=== PATIENT | female | born 1975 | race Caucasian/White ===

== ENCOUNTER 2017-12-10 18:08 | Emergency (ER) | payer OTHER ==
[~2017-12-10] VITALS: Ht 167.6 cm; Wt 68.9 kg
[2017-12-10 18:21] VITALS: BP 127/87
--- NOTE | 2017-12-10 19:06 | PHYS DOC ---
Past History Past Medical History: Anxiety Alcohol Use: None Drug Use: None Adult General Chief Complaint Chief Complaint: CHEST WALL PAIN HPI HPI 42-year-old female presents with chest pain that started 4 hours ago. The pain came on after her workout at the gym when she got home. The pain was a tightness around her bra line that radiated into her shoulder blades. The intensity only lasted for about a minute, but she continues to have, dull ache in this region. She also states having intermittent jaw pain for the last couple of weeks that seems to come and go with no pattern. She has noticed it more with her daily workouts. She had some shortness of breath with today's episode but denies diaphoresis. She admits to a history of PTSD and anxiety. She knows that her anxiety about this feeling is making it worse. She took a muscle relaxer for the jaw tightness and a Xanax prior to arrival. They did help some, she is still worried. She denies fever or chills. She has no previous history of coronary artery disease or heart attack. Review of Systems Review of Systems Constitutional: Denies fever or chills [] Eyes: Denies change in visual acuity, redness, or eye pain [] HENT: Denies nasal congestion or sore throat pain [] Respiratory: Denies cough or shortness of breath [] Cardiovascular: No additional information not addressed in HPI [] GI: Denies abdominal pain, nausea, vomiting, bloody stools or diarrhea [] : Denies dysuria or hematuria [] Musculoskeletal: Denies back pain or joint pain [] Integument: Denies rash or skin lesions [] Neurologic: Mild right sided headache. No focal weakness or sensory changes [] Endocrine: Denies polyuria or polydipsia [] All other systems were reviewed and found to be within normal limits, except as documented in this note. Allergies Allergies Allergies Coded Allergies Type Severity Reaction Last Updated Verified No Known Drug Allergies 12/10/17 No Physical Exam Physical Exam Constitutional: Well developed, well nourished, no acute distress, non-toxic appearance. [] HENT: Normocephalic, atraumatic, bilateral external ears normal, oropharynx moist, no oral exudates, nose normal. [] Eyes: PERRLA, EOMI, conjunctiva normal, no discharge. [] Neck: Normal range of motion, no tenderness, supple, no stridor. [] Cardiovascular:Heart rate regular rhythm, no murmur [] Lungs & Thorax: Bilateral breath sounds clear to auscultation [] Abdomen: Bowel sounds normal, soft, no tenderness, no masses, no pulsatile masses. [] Skin: Warm, dry, no erythema, no rash. [] Back: No tenderness, no CVA tenderness. [] Extremities: No tenderness, no cyanosis, no clubbing, ROM intact, no edema. [] Neurologic: Alert and oriented X 3, normal motor function, normal sensory function, no focal deficits noted. [] Psychologic: Affect normal, judgement normal, mood normal. [] Current Patient Data Vital Signs Vital Signs Date Time Temp Pulse Resp B/P (MAP) Pulse Ox O2 Delivery O2 Flow Rate FiO2 12/10/17 18:21 98.2 60 16 98 Room Air EKG EKG Sinus rhythm, no rate 54, normal axis, no ST elevations or depressions.[] Radiology/Procedures Radiology/Procedures [] Impressions: My interpretation, chest x-rays no acute findings. Course & Med Decision Making Course & Med Decision Making Pertinent Labs and Imaging studies reviewed. (See chart for details) Chest x-ray is unremarkable. Her EKG is unremarkable. Her labs are unremarkable. Her troponin is negative. The patient's pain does not appear to be cardiac. It has improved rapidly. I had a long conversation with the patient and she was reassured by her results. She is an avid athlete, working out every day. She's had no exercise intolerance or difficulty. Her constellation of symptoms do not appear to be cardiac. The patient would prefer to go home versus chest pain rule out admission. If her symptoms worsen she will return to emergency room. She is stable for discharge at this time. [] Dragon Disclaimer Dragon Disclaimer This electronic medical record was generated, in whole or in part, using a voice recognition dictation system. JULITA MONTEMAYOR DO Dec 10, 2017 19:06
[2017-12-10 19:23] LABS: BASO % 1 % (0-3); EOS # 0.1 x10^3/uL (0.0-0.7); EOS % 2 % (0-3); HEMATOCRIT 39.3 % (36.0-47.0); HEMOGLOBIN 13.3 g/dL (12.0-15.5); LYMPH # 2.3 x10^3/uL (1.0-4.8); LYMPH % 31 % (24-48); MEAN CORPUSCULAR HEMOGLOBIN 32 pg (25-35); MEAN CORPUSCULAR HGB CONC 34 g/dL (31-37); MEAN CORPUSCULAR VOLUME 94 fL (79-100); MONO # 0.5 x10^3/uL (0.0-1.1); MONO % 7 % (0-9); NEUT # 4.5 x10^3uL (1.8-7.7); NEUT % 60 % (31-73); PLATELET COUNT 273 x10^3/uL (140-400); WHITE BLOOD COUNT 7.5 x10^3/uL (4.0-11.0)
[2017-12-10 19:33] LABS: ALBUMIN 3.8 g/dL (3.4-5.0); ALBUMIN/GLOBULIN RATIO 1.3 (1.0-1.7); CALCIUM 8.9 mg/dL (8.5-10.1); CREATININE 0.9 mg/dL (0.6-1.0); GFR 68.7; TOTAL BILIRUBIN 0.4 mg/dL (0.2-1.0); TOTAL PROTEIN 6.7 g/dL (6.4-8.2)
--- NOTE | 2017-12-10 22:40 | RAD ---
CHEST PA LATERAL dated 12/10/2017 6:35 PM. Comparison: None. Clinical Indication: Chest pain, no injury or surgery to chest. Findings: PA and lateral views of the chest were obtained. Heart and mediastinal contours within normal limits. Lungs are clear without focal consolidation. Vascular interstitium within normal limits. No pleural effusion or pneumothorax. Impression: No acute radiographic abnormality. Electronically signed by: Finn Reyes MD (12/10/2017 10:37 PM) [id number]
--- NOTE | 2017-12-11 06:34 | EKG ---
[address] [address] Test Date: 2017-12-10 Test Time: 19:11:22 Pat Name: SHELBIE STOREY Department: Room: Gender: F Ocularist: : 1975 Requested By: JULITA MONTEMAYOR Order Number: [id number] Reading MD: Measurements Intervals [place] Rate: 54 P: 38 TX: 146 QRS: 17 QRSD: 88 T: 21 QT: 426 QTc: 410 Interpretive Statements SINUS RHYTHM NO SPECIFIC ECG ABNORMALITIES RI6.01 Unconfirmed report No previous ECG available for comparison
== END 2017-12-10 21:14 | disposition home or self-care (01) ==
LOC: ER 18:08
DX: R07.89 Other chest pain (principal); R68.84 Jaw pain; R51 Headache; F41.9 Anxiety disorder, unspecified
CPT/HCPCS: 36415; 71046; 80053; 84484; 85025; 93005; 99285-25

== ENCOUNTER 2019-10-28 02:10 | Emergency (ER) | payer OTHER ==
[2017-12-10 20:29] VITALS: BP 153/65
== END 2019-10-28 02:14 | disposition left against medical advice (07) ==
LOC: ER 02:10
DX: Z20.818 Contact with and (suspected) exposure to other bacterial communicable diseases (principal); Z53.21 Procedure and treatment not carried out due to patient leaving prior to being seen by health care provider

== ENCOUNTER 2020-11-21 15:31 | Emergency (ER) | payer OTHER ==
[~2020-11-21] VITALS: Ht 167.6 cm; Wt 68.3 kg
[2020-11-21] MEDS ORDERED: LIDO:MAALOX 1:1 20 ML SINGLE DOSE. PO ONE (16:00)
--- NOTE | 2020-11-21 16:08 | PHYS DOC ---
Past History Past Medical History: Anxiety Additional Past Medical Histor: PTSD Past Surgical History: Angioplasty, Other Additional Past Surgical Histo: Thyriod, GI, bladder Alcohol Use: None Drug Use: None General Adult EDM: Chief Complaint: ABDOMINAL PAIN HPI: HPI: Patient is a 45-year-old female being seen in the ER today for epigastric pain that radiates up into her medial chest and to her back that started 3 weeks ago. Patient reports that she just thought this was GERD but over the last 2 days it had worsened. She has had a thyroidectomy and was told that during the surgery something of her that affected her esophagus and therefore she has acid reflux and some dysphagia. Patient rates pain 3 out of 10, it is constant, she describes it as a burning/pressure. It is worse with swallowing and burping, she reports that she often wakes up with a burning sensation. Patient denies cough, fevers, acid reflux, abdominal pain, nausea, vomiting, diarrhea, shortness of breath, urinary complaints, abdominal distention. Review of Systems: Review of Systems: 14 body systems of the review of systems have been reviewed. See HPI for pertinent positive and negative responses, otherwise all other systems are negative, nonpertinent or noncontributory Allergies: Allergies: Allergies Coded Allergies Type Severity Reaction Last Updated Verified No Known Drug Allergies 12/10/17 No Physical Exam: PE: Constitutional: Well developed, well nourished, no acute distress, non-toxic appearance. [] HENT: Normocephalic, atraumatic, bilateral external ears normal, oropharynx moist, no oral exudates, nose normal. [] Eyes: PERRL, conjunctiva normal, no discharge. [] Neck: Normal range of motion, no stridor Cardiovascular:Heart rate regular rhythm, no murmur, no pain with palpation of chest wall [] Lungs & Thorax: Bilateral breath sounds clear to auscultation [] Abdomen: Bowel sounds normal, soft, no tenderness, no masses, no pulsatile masses, patient reports "pressure" pain with palpation of epigastric region of abdomen. [] Skin: Warm, dry, no erythema, no rash. [] Back: Normal range of motion Extremities: No tenderness, no cyanosis, no clubbing, ROM intact, no edema. [] Neurologic: Alert and oriented X 3, normal motor function, normal sensory function, no focal deficits noted. [] Psychologic: Affect normal, judgement normal, mood normal. [] Current Patient Data: Labs: Laboratory Tests Test 11/21/20 15:51 11/21/20 16:28 Urine Collection Type Unknown Urine Color Yellow Urine Clarity Clear Urine pH 6.0 Urine Specific [place] 1.025 Urine Protein Neg Urine Glucose (UA) Neg mg/dL Urine Ketones (Stick) 15 mg/dL Urine Blood Trace Urine Nitrite Neg Urine Bilirubin Neg Urine Urobilinogen Dipstick 0.2 mg/dL Urine Leukocyte Esterase Neg Urine RBC 3-5 /HPF Urine WBC Occ /HPF Urine Squamous Epithelial Cells Few /LPF Urine Bacteria Few /HPF White Blood Count 8.6 x10^3/uL Red Blood Count 4.09 x10^6/uL Hemoglobin 13.5 g/dL Hematocrit 39.4 % Mean Corpuscular Volume 96 fL Mean Corpuscular Hemoglobin 33 pg Mean Corpuscular Hemoglobin Concent 34 g/dL Red Cell Distribution Width 12.9 % Platelet Count 260 x10^3/uL Neutrophils (%) (Auto) 69 % Lymphocytes (%) (Auto) 21 % Monocytes (%) (Auto) 8 % Eosinophils (%) (Auto) 1 % Basophils (%) (Auto) 1 % Neutrophils # (Auto) 5.9 x10^3uL Lymphocytes # (Auto) 1.8 x10^3/uL Monocytes # (Auto) 0.7 x10^3/uL Eosinophils # (Auto) 0.1 x10^3/uL Basophils # (Auto) 0.0 x10^3/uL Sodium Level 140 mmol/L Potassium Level 4.0 mmol/L Chloride Level 106 mmol/L Carbon Dioxide Level 27 mmol/L Anion Gap 7 Blood Urea Nitrogen 23 mg/dL Creatinine 0.9 mg/dL Estimated GFR (Cockcroft-Gault) 67.7 BUN/Creatinine Ratio 26 Glucose Level 88 mg/dL Calcium Level 8.4 mg/dL Total Bilirubin 0.4 mg/dL Aspartate Amino Transf (AST/SGOT) 19 U/L Alanine Aminotransferase (ALT/SGPT) 27 U/L Alkaline Phosphatase 82 U/L Troponin I Quantitative < 0.017 ng/mL Total Protein 6.7 g/dL Albumin 4.0 g/dL Albumin/Globulin Ratio 1.5 Lipase 120 U/L Current Medications Medications (Trade) Dose Ordered Sig/Deborah Route PRN Reason Start Time Stop Time Status Last Admin Dose Admin Multi-Ingredient Mouthwash/Gargle (Gi Cocktail) 20 ml 1X ONCE PO 11/21/20 16:00 11/21/20 16:40 DC 11/21/20 16:00 Vital Signs: Vital Signs Date Time Temp Pulse Resp B/P (MAP) Pulse Ox O2 Delivery O2 Flow Rate FiO2 11/21/20 15:45 98.2 64 16 158/82 100 Room Air EKG: EKG: EKG performed by ER staff at 1550 shows sinus rhythm, no STEMI as read by Dr. Nassar. Radiology/Procedures: Radiology/Procedures: PROCEDURE: CHEST PA & LATERAL PA and lateral chest. HISTORY: Chest pain PA and lateral views were taken of the chest. Lungs are clear. Heart is normal in size. There is no effusion. IMPRESSION: 1. No acute chest disease. Electronically signed by: Darron Chaudhry MD (11/21/2020 4:24 PM) [facility] DICTATED AND SIGNED BY: DARRON CHAUDHRY MD DATE: 11/21/20 1622 CC: RHYS TAVAREZ; VICTORINA NARANJO BOMB TECHNICIAN ~MTH0 0 Heart Score: C/O Chest Pain: Yes HEART Score for Chest Pain: HEART Score for Chest Pain Response (Comments) Value History Slighlty/Non-Suspicious 0 ECG Normal 0 Age < 45 0 Risk Factors No Risk Factors 0 Troponin < Normal Limit 0 Total 0 Risk Factors: Risk Factors: DM, Current or recent (<one month) smoker, HTN, HLP, family history of CAD, obesity. Risk Scores: Score 0 - 3: 2.5% MACE over next 6 weeks - Discharge Home Score 4 - 6: 20.3% MACE over next 6 weeks - Admit for Clinical Observation Score 7 - 10: 72.7% MACE over next 6 weeks - Early Invasive Strategies Course & Med Decision Making: Course & Med Decision Making Pertinent Labs and Imaging studies reviewed. (See chart for details) Patient is a 45-year-old female being seen in the ER today for epigastric pain that radiates up into her chest into her back. Work-up in the ER included UA, EKG, chest x-ray, lab work. Patient was treated with a GI cocktail. Work-up in the ER was unremarkable. Patient reports mild improvement in symptoms f ollowing GI cocktail. Discussed patient possibility that this is esophagitis and may be due to GERD versus esophagus trauma following surgery. Patient discharged home with a prescription for omeprazole. She is given information on GI clinic/GI doctors to follow-up with. I discussed with patient all findings and diagnostic testing as well as the need to follow-up with PCP for further evaluation and treatment or return to the ER if any new or worsening symptoms. Strict return precautions were also discussed at length. Patient voiced understanding and agreement with the plan. Patient is hemodynamically stable at the time of disposition. Dragon Disclaimer: Dragon Disclaimer: This electronic medical record was generated, in whole or in part, using a voice recognition dictation system. Departure Departure: Impression: Primary Impression: Esophagitis Additional Impression: GERD (gastroesophageal reflux disease) Qualified Codes: K21.9 - Gastro-esophageal reflux disease without esophagi tis Disposition: HOME / SELF CARE / HOMELESS Condition: GOOD Referrals: RHYS TAVAREZ (PCP) JESSICA LAGUNAS MD Patient Instructions: Esophagitis, Gastroesophageal Reflux Disease, Adult Additional Instructions: You were seen in the ER today for chest/epigastric pain. As we discussed, your work-up in the ER was unremarkable. You were treated with a GI cocktail and had some improvement in your symptoms. It is likely that you have esophagitis either from GERD or esophageal trauma. Please follow-up with your primary care provider tomorrow regarding your ER visit today. You should follow-up with the GI doctor because it might be necessary for you to have an upper endoscopy. A referral to follow-up with EMILY Davis. Attached is the name of a GI doctor that you can call to follow-up with regarding your ER visit; Dr. Lagunas. You are being sent home with a prescription for omeprazole to take for acid reflux please take as directed. If you develop worsening of your pain, nausea, vomiting, severe abdominal pain, fevers, chest pain, shortness of breath please return to the ER immediately. EMERGENCY DEPARTMENT GENERAL DISCHARGE INSTRUCTIONS Thank you for coming to [facility] (ED) today and trusting us with you care. We trust that you had a positivie experience in our Emergency Department. If you wish to speak to the department management, you may call the director at . YOUR FOLLOW UP INSTRUCTIONS ARE FOLLOWS: 1. Do you have a private Doctor? If you do not have a private doctor, please ask for a resource list of physicians or clinics that may be able to assist you with follow up care. 2. The Emergency Physician has interpreted your x-rays. The X-Ray specialist will also review them. If there is a change in the findings, you will be notified in 48 hours when at all possible. 3. A lab test or culture has been done, your results will be reviewed and you will be notified if you need a change in treatment. ADDITIONAL INSTRUCTIONS AND INFORMATION: 1. Your care today has been supervised by a physician who is specially trained in emergency care. Many problems require more than one evaluation for a complete diagnosis and treatment. We recommend that you schedule your follow up appointment as recommended to ensure complete treatment of you illness or injury. If you are unable to obtain follow up care and continue to have a problem, or if your condition worsens, we recommend that you return to the ED. 2. We are not able to safely determine your condition over the phone nor are we able to give sound medical advice over the phone. For these safety reasons, if you call for medical advice we will ask you to come to the ED for further evaluation. 3. If you have any questions regarding these discharge instructions please call the ED at [phone]. SAFETY INFORMATION: In the interest of safety, wellness, and injury prevention; we encourage you to wear your sealbelt, if you smoke; quite smoking, and we encourage family to use a protective helmet for bicycling and other sporting events that present an increased risk for head injury. IF YOUR SYMPTOMS WORSEN OR NEW SYMPTOMS DEVELOP, OR YOU HAVE CONCERNS ABOUT YOUR CONDITION; OR IF YOUR CONDITION WORSENS WHILE YOU ARE WAITING FOR YOUR FOLLOW UP APPOINTMENT; EITHER CONTACT YOUR PRIMARY CARE DOCTOR, THE PHYSICIAN WHOSE NAME AND NUMBER YOU WERE GIVEN, OR RETURN TO THE ED IMMEDIATELY. Scripts Omeprazole (OMEPRAZOLE) 20 Mg Capsule. 1 CAP PO DAILY for gerd for 30 Days, #30 CAP 0 Refills Prov: VICTORINA NARANJO APRN 11/21/20 VICTORINA NARANJO APRN Nov 21, 2020 16:08
--- NOTE | 2020-11-21 16:26 | RAD ---
PA and lateral chest. HISTORY: Chest pain PA and lateral views were taken of the chest. Lungs are clear. Heart is normal in size. There is no e ffusion. IMPRESSION: 1. No acute chest disease. Electronically signed by: Darron Chaudhry MD (11/21/2020 4:24 PM) [facility]
[2020-11-21 16:38] LABS: BILIRUBIN,URINE NEG (NEG); CLARITY,URINE CLEAR; COLOR,URINE YELLOW; GLUCOSE,URINE NEG (NEG)
[2020-11-21 16:39] LABS: NITRITE,URINE NEG (NEG); UROBILINOGEN,URINE 0.2 mg/dL (0.2 mg/dL)
[2020-11-21 16:40] LABS: BACTERIA,URINE FEW /HPF (0-FEW); SQUAMOUS EPITHELIAL CELL,UR FEW /LPF; WBC,URINE OCC /HPF (0-4)
[2020-11-21 16:47] LABS: BASO % 1 % (0-3); EOS # 0.1 x10^3/uL (0.0-0.7); EOS % 1 % (0-3); HEMATOCRIT 39.4 % (36.0-47.0); HEMOGLOBIN 13.5 g/dL (12.0-15.5); LYMPH # 1.8 x10^3/uL (1.0-4.8); LYMPH % 21 % (24-48); MEAN CORPUSCULAR HEMOGLOBIN 33 pg (25-35); MEAN CORPUSCULAR HGB CONC 34 g/dL (31-37); MEAN CORPUSCULAR VOLUME 96 fL (79-100); MONO # 0.7 x10^3/uL (0.0-1.1); MONO % 8 % (0-9); NEUT # 5.9 x10^3uL (1.8-7.7); NEUT % 69 % (31-73); PLATELET COUNT 260 x10^3/uL (140-400); RED BLOOD COUNT 4.09 x10^6/uL (3.50-5.40); RED CELL DISTRIBUTION WIDTH 12.9 % (11.5-14.5); WHITE BLOOD COUNT 8.6 x10^3/uL (4.0-11.0)
[2020-11-21 16:59] LABS: CALCIUM 8.4 mg/dL (8.5-10.1); CREATININE 0.9 mg/dL (0.6-1.0); GFR 67.7
[2020-11-21 17:04] LABS: ALBUMIN/GLOBULIN RATIO 1.5 (1.0-1.7); TOTAL BILIRUBIN 0.4 mg/dL (0.2-1.0); TOTAL PROTEIN 6.7 g/dL (6.4-8.2)
[2020-11-21] MEDS ORDERED: OMEP20CA16 PO (17:37)
[2020-11-21 17:52] VITALS: BP 154/76
== END 2020-11-21 17:53 | disposition home or self-care (01) ==
LOC: ER 15:31
DX: K21.00 Gastro-esophageal reflux disease with esophagitis, without bleeding (principal)
CPT/HCPCS: 36415; 71046; 80053; 81001; 83690; 84484; 85025; 93005; 99285-25

== ENCOUNTER 2021-05-27 19:27 | Emergency (ER) | payer OTHER ==
[~2021-05-27 19:27] MED LIST: OMEP20CA16 PO
[2021-05-27] MEDS ORDERED: OXYMETAZOLINE 0.05% NASAL SPRAY 30ML BOTTLE. NS ONE (20:00)
--- NOTE | 2021-05-27 20:02 | PHYS DOC ---
Past History Past Medical History: Anxiety Additional Past Medical Histor: PTSD Past Surgical History: Angioplasty, Other Additional Past Surgical Histo: Thyriod, GI, bladder Alcohol Use: None Drug Use: None Adult General Chief Complaint Chief Complaint: NOSEBLEED HPI HPI Patient is a 45-year-old female, otherwise healthy who presents with a chief complaint of nosebleed. States it was bleeding earlier in the day and then slowed down. States it has slowed down considerably and has stopped recently after coming to the emergency department. Denies any history of coagulopathies, nosebleeds or issues with stopping bleeding. States she was diagnosed with Covid a week ago but is otherwise asymptomatic and off quarantine. Denies any recent travels, traumas, fevers, chest pain, shortness of breath, abdominal pain, nausea, vomiting. Denies any hematuria or blood in the stool. No anticoagulation use. Review of Systems Review of Systems Review of systems otherwise unremarkable except noted in HPI Allergies Allergies Allergies Coded Allergies Type Severity Reaction Last Updated Verified No Known Drug Allergies 12/10/17 No Physical Exam Physical Exam Constitutional: Well developed, well nourished, no acute distress, non-toxic appearance. [] HENT: Normocephalic, atraumatic, bilateral external ears normal, oropharynx moist, no oral exudates, external nose normal, dried blood in nares bilaterally with no active bleeding. [] Eyes:conjunctiva normal, no discharge. [] Neck: Normal range of motion, no tenderness, supple, no stridor. [] Cardiovascular:Heart rate regular rhythm, no murmur [] Lungs & Thorax: Bilateral breath sounds clear to auscultation [] Neurologic: Alert and oriented X 3, normal motor function, normal sensory function, no focal deficits noted. [] Psychologic: Affect normal, judgement normal, mood normal. [] EKG EKG [] Radiology/Procedures Radiology/Procedures [] Heart Score C/O Chest Pain: No Risk Factors: Risk Factors: DM, Current or recent (<one month) smoker, HTN, HLP, family history of CAD, obesity. Risk Scores: Risk Factors: DM, Current or recent (<one month) smoker, HTN, HLP, family history of CAD, obesity. Course & Med Decision Making Course & Med Decision Making Patient is a 45-year-old female who presents with nosebleed and history of Covid Vital signs not concerning. Physical exam noted above. Given Afrin. Denied need for pain medicine. No other symptoms of Covid currently in all quarantine. Discussed management of nosebleeds at home. Advised to follow-up with primary care as needed. Gave return precautions to the ED. Patient grateful, verbalized understanding and agreed with plan of discharge [] Dragon Disclaimer Dragon Disclaimer This electronic medical record was generated, in whole or in part, using a voice recognition dictation system. Departure Departure: Impression: Primary Impression: Epistaxis Disposition: HOME / SELF CARE / HOMELESS Condition: GOOD Referrals: RHYS TAVAREZ (PCP) Patient Instructions: Nosebleed Additional Instructions: Fever coming into the emergency department tonight and allowing us to take care of you. Please read the attached information carefully to go over things we discussed. You can manage your nosebleeds at home as we discussed and noted your education. Please follow-up in 1 with your primary care physician update on your ED visit and set up a follow-up as needed. Please come back with new or concerning symptoms as discussed. ANEL GONCALVES MD May 27, 2021 20:02
== END 2021-05-27 21:12 | disposition home or self-care (01) ==
LOC: ER 19:27
DX: R04.0 Epistaxis (principal); F41.9 Anxiety disorder, unspecified
CPT/HCPCS: 99281